=== PATIENT | female | born 1965 | race African-American/Black ===

== ENCOUNTER 2017-12-09 11:09 | Day surgery (SDC) | payer OTHER ==
[~2017-12-09] VITALS: Ht 160 cm; Wt 76.2 kg
[~2017-12-09 11:09] MED LIST: HYDROCHLOROTHIAZIDE PO; MICROZIDE12.5 M1 PO; MOTRIN600 MG PO; NORVASC5 MG PO
[2017-12-09 12:19] VITALS: BP 126/85
[2017-12-09 14:40] VITALS: BP 135/91
[2017-12-09 15:30] VITALS: BP 132/82
== END 2017-12-09 15:45 | disposition home or self-care (01) ==
LOC: SDC 11:09
PROC: 0UDB8ZX Extraction of Endometrium, Via Natural or Artificial Opening Endoscopic, Diagnostic (ICD-10-PCS; principal; 2017-12-09)
DX: D25.9 Leiomyoma of uterus, unspecified (principal); I10 Essential (primary) hypertension
CPT/HCPCS: 86850; 86900; 86901; 88305; J1100; J1885; J2405; J3010